=== PATIENT | female | born 1930 | race Caucasian/White ===

== ENCOUNTER → 2016-11-03 | Outpatient (CLI) | payer OTHER ==
[~2016-11-03] MED LIST: AMLODIPINE BESYL5 MG PO; CLOPIDOGREL75 MG PO; LEVOTHYROXINE75 MCG PO; LISINOPRIL10 MG PO; LOW DOSE ASPIRI81 M1 PO; SIMVASTATIN20 MG PO; SYNTHROID100 MCG PO; TOPROL XL50 MG PO; XANAX0.5 MG PO
== END | disposition home or self-care (01) ==
LOC: CDC 08:45
DX: R00.1 Bradycardia, unspecified (principal); I25.10 Atherosclerotic heart disease of native coronary artery without angina pectoris
CPT/HCPCS: 93000

== ENCOUNTER 2016-11-18 06:51 | Inpatient (IN) | payer OTHER ==
[~2016-11-18] VITALS: Ht 152.4 cm; Wt 54.0 kg
[~2016-11-18 06:51] MED LIST changes: +ATORVASTATIN CA40 MG PO; +METOPROLOL SUCC50 MG PO; +PROTONIX40 MG PO
[2016-11-18 07:46] VITALS: BP 128/60
[2016-11-18] MEDS ORDERED: HYDROCODON-ACE1 EAC7 PO (13:00)
[2016-11-18 17:00] VITALS: BP 133/55
[2016-11-18 18:00] VITALS: BP 131/49
[2016-11-18 19:00] VITALS: BP 141/55
[2016-11-18 19:15] LABS: METH RESISTANT S AUREUS PCR NEGATIVE (NEGATIVE)
[2016-11-18 19:16] LABS: PROBE CHECK PASS; SPECIMEN PROCESSING CONTROL PASS
[2016-11-18 20:00] VITALS: BP 137/63
[2016-11-18 23:30] VITALS: BP 147/50
[2016-11-19] VITALS (7 sets, daily range): BP systolic 0–158; BP diastolic 0–64
== END 2016-11-19 13:30 | disposition home or self-care (01) | DRG 39 ==
LOC: 2SOUTH → SDC 12:50 → EDSTATUS 12:50 → 2SOUTH 12:51 → 4WEST 17:12
PROVIDERS: Surgery
DX: I65.21 Occlusion and stenosis of right carotid artery (principal); I10 Essential (primary) hypertension; E03.9 Hypothyroidism, unspecified; K21.9 Gastro-esophageal reflux disease without esophagitis; I25.2 Old myocardial infarction; Z86.73 Personal history of transient ischemic attack (TIA), and cerebral infarction without residual deficits; Z79.82 Long term (current) use of aspirin; Z79.02 Long term (current) use of antithrombotics/antiplatelets
CPT/HCPCS: 87641; 93005; C1768; J0690; J1644; J1650; J2250; J2405; J2720; J2765; J2795; J3010

== ENCOUNTER 2016-11-19 20:39 | Emergency (ER) | payer OTHER ==
[~2016-11-19] VITALS: Ht 152.4 cm; Wt 56.3 kg
[~2016-11-19 20:39] MED LIST changes: +HYDROCODON-ACE1 EAC7 PO
[2016-11-19 21:45] LABS: HEMATOCRIT 33.3 % (36.0-46.0); MCH 29.2 PG (29.0-34.0); MCHC 33.6 G/DL (30.0-36.0); MCV 86.9 FL (83-99); MEAN PLAT.VOLUME 9.3 uM^3 (9.5-12.4); PLATELET COUNT 157 K/uL (156-360); RBC DIS.WIDTH-CV 12.9 % (11.8-14.6); RBC DIS.WIDTH-SD 40.7 % (39-53); RED BLOOD COUNT 3.83 M/uL (3.80-5.20)
[2016-11-19 22:18] LABS: ANION GAP 11 MEQ/L (2-14); CHLORIDE 101 MEQ/L (99-109); POTASSIUM 3.5 MEQ/L (3.7-5.4); SAMPLE HEMOLYSIS CHECK 0; SAMPLE ICTERIC CHECK 0; SAMPLE LIPEMIA CHECK 0; SODIUM 135 MEQ/L (136-147)
[2016-11-19 22:23] LABS: GFR ESTIMATE (CALCULATED) > 59 mL/min/; GLUCOSE 137 mg/dL (70-99); UREA NITROGEN (BUN) 9 mg/dL (9-23)
[2016-11-19 22:27] LABS: TROP-I INTERPRETATION NEGATIVE; TROPONIN-I < 0.01 ng/mL (0.0-0.30)
[2016-11-20 01:51] VITALS: BP 157/98
== END 2016-11-20 02:13 | disposition home or self-care (01) ==
LOC: EME 20:39
PROVIDERS: Emergency Medicine
DX: R51 Headache (principal); Z98.890 Other specified postprocedural states; I10 Essential (primary) hypertension; I25.2 Old myocardial infarction; Z86.73 Personal history of transient ischemic attack (TIA), and cerebral infarction without residual deficits; K21.9 Gastro-esophageal reflux disease without esophagitis
CPT/HCPCS: 70450; 70496; 70498; 80048; 84484; 85027; 93005; 99281; 99285; J1200; J2765; J7030